=== PATIENT | female | born 1975 | race Asian ===

== ENCOUNTER 2016-09-17 14:17 | Outpatient (CLI) | payer BC | END 2016-09-17 14:18 | disposition home or self-care (01) | DX: Z12.31 Encounter for screening mammogram for malignant neoplasm of breast (principal) ==

== ENCOUNTER 2016-09-17 14:19 | Outpatient (CLI) | payer BC | END 2016-09-17 14:20 | disposition home or self-care (01) | DX: C73 Malignant neoplasm of thyroid gland (principal) ==

== ENCOUNTER 2020-09-05 14:43 | Outpatient (CLI) | payer BC, OTHER ==
[2020-09-07 13:26] LABS: TB1-NIL 2.54 IU/mL; TB2-NIL 2.64 IU/mL
== END 2020-09-05 23:59 | disposition home or self-care (01) ==
LOC: LAB.WCP 14:43
PROVIDERS: ATTEND Nurse Practitioner Family
DX: Z00.00 Encounter for general adult medical examination without abnormal findings (principal); R76.11 Nonspecific reaction to tuberculin skin test without active tuberculosis
CPT/HCPCS: 36415; 86480

== ENCOUNTER 2020-09-08 10:31 | Outpatient (CLI) | payer OTHER ==
--- NOTE | 2020-09-08 11:21 | XRAY Report ---
PROCEDURE: Chest 2 View X-Ray INDICATIONS: POSITIVE PPD TECHNIQUE: 2 view(s) of the chest. COMPARISON: None. FINDINGS: Surgical changes and devices: None. Lungs and pleura: No pleural effusions or pneumothorax. Lungs are clear. Mediastinum: Mediastinal contours are normal. Heart size is normal. Bones and chest wall: No suspicious bony abnormalities. Soft tissues appear unremarkable. IMPRESSION: No acute cardiopulmonary process demonstrated radiographically. Reviewed by: Tye Bejarano MD on 09/08/2020 11:20 AM PDT Approved by: Tye Bejarano MD on 09/08/2020 11:20 AM PDT Station ID: [id number]
== END 2020-09-08 10:32 | disposition home or self-care (01) ==
LOC: DI.N 10:31
PROVIDERS: ATTEND Nurse Practitioner Family
DX: R76.11 Nonspecific reaction to tuberculin skin test without active tuberculosis (principal)

== ENCOUNTER 2020-10-13 08:00 | Outpatient (CLI) | payer OTHER ==
[2020-10-13 18:23] LABS: ALBUMIN 4.1 g/dL (3.2-5.5); ALBUMIN/GLOBULIN RATIO 1.4 (1.0-2.2); BILIRUBIN,TOTAL 0.9 mg/dL (0.2-1.0); CALCIUM 9.5 mg/dL (8.5-10.3); CREATININE 0.6 mg/dL (0.4-1.0); POTASSIUM 4.2 mmol/L (3.5-5.0); TOTAL PROTEIN 7.1 g/dL (6.7-8.2)
== END 2020-10-13 23:59 | disposition home or self-care (01) ==
LOC: LAB.WCP 08:00
PROVIDERS: ATTEND Physician Assistant Medical
DX: R76.11 Nonspecific reaction to tuberculin skin test without active tuberculosis (principal)
CPT/HCPCS: 36415; 80053